=== PATIENT | male | born 1950 | race Caucasian/White ===

== ENCOUNTER 2018-02-15 12:13 | Outpatient (CLI) | payer MEDICARE, MEDICAID ==
[~2018-02-15 12:13] MED LIST: ALBU18HF2 INH; ASPI81TA52 PO; ATOR20TA66 PO; CARV3.122 PO; FLUT1DIS4 INH; FURO20TA4 PO; HYDR-569 PO; LISI2.5T2 PO; MAGN400C PO
[2018-02-15 13:06] LABS: ABG BASE EXCESS -2.4 mmol/L (-2.0-3.0); ABG HCO3 19.5 mmol/L (22.0-26.0); ABG OXYGEN SATURATION 97.2 % (95-98); ABG PCO2 (T) 28.1 mmHg (35.0-48.0); ABG PO2 (T) 88.6 mmHg (83-108); ALLEN'S TEST Positive; FCOHb 1.2 % (0.5-1.5); FMetHb 0.2 % (0.3-1.12); FO2Hb 95.8 % (94-100); TOTAL HEMOGLOBIN 18.6 G/dl (14.0-18.0)
[2018-02-15] MEDS ORDERED: albuterol 2.5 MG/3 ML nebule NEB ONE ×2 (14:05→14:30)
== END 2018-02-15 23:59 | disposition home or self-care (01) ==
LOC: RT 12:13
PROVIDERS: ATTEND Internal Medicine Pulmonary Disease
DX: J44.9 Chronic obstructive pulmonary disease, unspecified (principal); G47.33 Obstructive sleep apnea (adult) (pediatric); D75.1 Secondary polycythemia; F19.11 Other psychoactive substance abuse, in remission
CPT/HCPCS: 36600; 71046; 82803; 85018; 94060; 94640; 94727; 94729; 94760

== ENCOUNTER 2024-09-19 08:25 | Outpatient (CLI) | payer MEDICARE, MEDICAID, OTHER ==
[~2024-09-19 08:25] MED LIST changes: +HYDR-4383 PO; -HYDR-569 PO; +LISI2.5T14 PO; -LISI2.5T2 PO
== END 2024-09-19 23:59 | disposition home or self-care (01) ==
LOC: VAS 08:25
PROVIDERS: ATTEND Internal Medicine Critical Care Medicine
DX: R60.9 Edema, unspecified (principal)
CPT/HCPCS: 93971